=== PATIENT | male | born 1975 | race Caucasian/White ===

== ENCOUNTER 2023-08-08 10:08 | Emergency (ER) | payer OTHER, BC, SELFPAY ==
[2023-08-08 10:11] VITALS: BP 128/84
--- NOTE | 2023-08-08 10:45 | ED.GENMED ---
History of Present Illness
<Nata Hummel PA-C - Last Filed: 08/08/23 13:08>
General
Chief Complaint: Back Pain
Source: patient
Exam Limitations: none
Time Seen by Provider: 08/08/23 10:27
Nursing documentation reviewed up to this point in time: agreed with
Travel History
Have you had any contact with someone who has COVID-19?: No
Do you have any symptoms of coronavirus? Fever > 100 degrees, chills, cough, shortness of breath, sore throat, loss of taste or smell, muscle aches, or headache?: No
History of Present Illness
History of Present Illness:
Patient is a 47 year old male with no significant past medical history presenting for acute onset lower back pain. 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
back. He describes the motion as a quick twisting motion. He denies any falls or trauma. Pain is located in his right lower back with radiation down his right thigh. He tried to take Advil yesterday afternoon without any improvement. He did
apply a heating pad last night. He states the pain is worse today and he has very limited movement. Pain is worse when laying flat.
He denies any fever, chills, lower extremity weakness or numbness. He denies any bowel or bladder incontinence, saddle anesthesia, dysuria. He denies any constipation.
Patient has no history of IV drug use.
Patient has no chronic medical conditions. Takes no medications daily
Past History
<Nata Hummel PA-C - Last Filed: 08/08/23 13:08>
Past History
ED Past Medical History: None
ED Past Surgical History: None
Social History
Tobacco: Non-smoker
Phy Exam
<Nata Hummel PA-C - Last Filed: 08/08/23 13:08>
Physical Exam
Physical Exam:
General: Moderately uncomfortable due to pain; nontoxic appearing
HEENT: Atraumatic, normocephalic; pupils equal round and reactive to light bilaterally, protecting airway
Neck: appears supple, no cervical spine tenderness
CV: RRR, heart sounds normal; No evidence of cyanosis
Resp: No evidence of respiratory distress, lungs clear bilaterally without wheezing, rales, or rhonchi
Abd: Soft, nontender; Non-distended
Extremities: No deformities, no evidence of cyanosis or edema; DP pulses palpable and equal bilaterally; strength 5/5 in upper and lower extremities
Back: No midline spinal tenderness, mild tenderness to palpation in right lower paraspinal region
Neuro: alert and oriented x 3; speech normal; no focal neurologic deficits, sensation fully intact
Psych: Normal affect
Skin: Intact, no rashes
Course
<Nata Hummel PA-C - Last Filed: 08/08/23 13:08>
Orders/Labs/Results
Orders:
Orders
08/08/23 10:53
Acetaminophen [Tylenol] 1,000 mg PO NOW STA
Ketorolac [Toradol] 30 mg IM NOW STA
Lidocaine [Lidocaine 4% Patch] 1 patch TOPICAL ONCE ONE
Oxycodone [Roxicodone] 5 mg PO NOW STA
Vital Signs
Initial and Last Documented VS:
Initial Vital Signs
Temp Pulse Resp BP Pulse Ox
97.7 F 87 20 128/84 97
08/08/23 10:11 08/08/23 10:11 08/08/23 10:11 08/08/23 10:11 08/08/23 10:11
Last Documented Vital Signs
Temp Pulse Resp BP Pulse Ox
97.7 F 87 20 128/84 97
08/08/23 10:11 08/08/23 10:11 08/08/23 10:11 08/08/23 10:11 08/08/23 10:11
<Jonny Aggarwal MD - Last Filed: 08/08/23 11:03>
Orders/Labs/Results
Orders:
Orders
08/08/23 10:53
Acetaminophen [Tylenol] 1,000 mg PO NOW STA
Ketorolac [Toradol] 30 mg IM NOW STA
Lidocaine [Lidocaine 4% Patch] 1 patch TOPICAL ONCE ONE
Oxycodone [Roxicodone] 5 mg PO NOW STA
Vital Signs
Initial and Last Documented VS:
Initial Vital Signs
Temp Pulse Resp BP Pulse Ox
97.7 F 87 20 128/84 97
08/08/23 10:11 08/08/23 10:11 08/08/23 10:11 08/08/23 10:11 08/08/23 10:11
Last Documented Vital Signs
Temp Pulse Resp BP Pulse Ox
97.7 F 87 20 128/84 97
08/08/23 10:11 08/08/23 10:11 08/08/23 10:11 08/08/23 10:11 08/08/23 10:11
<Nata Hummel PA-C - Last Filed: 08/08/23 13:08>
MDM/Problems Addressed
Differential Diagnosis Includes:
Muscular strain, muscular spasm, herniated disc, sciatica, doubt fracture or malignancy
MDM/Problems Addressed:
Patient is a 47-year-old male with no significant past medical history presenting for evaluation of acute onset right lower back pain since yesterday. Patient does report feeling sharp pain when bending over to pick a piece of paper. No red flag
back symptoms. Vital signs are stable, afebrile. Physical exam as document above. Patient appears moderately uncomfortable due to pain. He has no midline spinal tenderness. He does have some tenderness along right lower paraspinal muscles.
Patient unable to lay flat for complete assessment. Do not suspect infectious process. Do not suspect fracture without any known history of trauma. Will treat pain and reassess.
Update 11: 40 p.m: Into reassess patient. He received medications about 15 minutes ago. He does seem to have mildly improved mobility but still reporting significant pain. Will reassess.
Update 12: 20 p.m: Reassessed patient at bedside. He is laying in bed, appears more comfortable. Stable for discharge with return precautions, supportive care, primary care follow-up. Discussed with patient. he is comfortable with this plan.
Chronic conditions affecting care:
N/A
Acute Exacerbation and/or Progression of Chronic Illness:
N/A
<Nata Hummel PA-C - Last Filed: 08/08/23 13:08>
*Pulse Oximetry
Patient hypoxic: no
*Paper Plate Machine Tender Interpretation
Rate: Paper Plate Machine Tender- N/A
*Critical Care Note
Total Time (30-74mins, 75-104mins- exclusive of procedures): Not Applicable
ED Attending Note
<Nata Hummel PA-C - Last Filed: 08/08/23 13:08>
-
Portions of this chart may have been created with voice recognition software.� Occasional wrong word or��sound alike� substitutions may have occurred due to the inherent limitations of voice recognition software.
<Jonny Aggarwal MD - Last Filed: 08/08/23 11:03>
ED Attending Note
Patient seen and examined by attending physician: Yes
ED Attending Note:
HPI: 47-year-old male with history as documented presents to the emergency department for evaluation of back pain. Patient reports he was bending over to pick something up yesterday and felt a twinge in his low back and today having severe pain
right lower back. He says he will occasionally with certain movements get radiating pain into his thigh. Denies any numbness or weakness in the legs. Denies any saddle anesthesia. Denies any incontinence of bowel or bladder. Denies any falls.
No fevers or chills.
ROS: Positive for back pain; negative for weakness or numbness, incontinence, fever
Physical exam:
General: Awake, alert, appears uncomfortable
Head: Normocephalic, atraumatic
Eyes: Conjunctiva normal
Throat: Airway intact, handling secretions
Neck: Trachea midline, supple without meningismus
Lungs: Breathing comfortably no distress
Heart: Regular rate
Abd: Soft, non distended, nontender
Back: Patient has tenderness in the paraspinal region on the right side at the level of L2; no midline tenderness in the lumbar spine; range of motion of the back severely limited by pain
Neuro: Cranial nerves grossly intact, speech fluid; motor function intact bilateral lower extremities and he is ambulatory in the ED
Skin: no rash
Extremities: Warm and well-perfused
Differential diagnosis: Bulging/herniated disc with sciatica, muscle spasm, myofascial strain; vertebral fracture less likely based on mechanism and lack of midline tenderness
Medical decision m[age]-year-old male presents for back pain after bending and twisting to pick something up yesterday. Vital signs normal. Exam as above. No red flag signs or symptoms. Suspect likely muscular pain although possible bulging
disc as well as does occasionally have shooting pains down towards the right thigh. No clear indication for emergent imaging of the back at this point in time. Will plan to treat symptomatically. Will need referral for outpatient follow-up
pending ED treatment.
Chronic conditions affecting care: N/A
Acute exacerbation or progression of chronic illness: N/A
History source: Patient, spouse
Data reviewed: N/A
Medications/testing considered: Considered x-ray of the lumbar spine
Social determinants of health: N/A
Discussion with other providers: N/A
Discharge Plan
Departure
Patient Disposition: Home (Routine Discharge)
Date of Disposition: 08/08/23
Time of Disposition: 12:57
Patient with high blood pressure during this ER visit?: No
Discharge Problem:
Low back pain
Instructions: Low Back Pain (DC)
Prescriptions:
New
oxycodone 5 mg tablet
5 mg PO Q8H PRN (Reason: Pain) Qty: 15 0RF
ibuprofen 400 mg tablet
400 mg PO Q6H PRN (Reason: Pain) Qty: 30 0RF
acetaminophen 500 mg tablet
1,000 mg PO Q6H PRN (Reason: Pain) Qty: 30 0RF
lidocaine 5 % adhesive patch,medicated
1 patch topical DAILY Qty: 30 0RF
Referrals:
Jerry Stein MD [Family Provider] - Call in 1-3 days for appt
Stand Alone Forms: Return to Work
Activity Restrictions/Additional Instructions:
Thank you for visiting the Emergency Department at [facility].
1. Please schedule a follow up appointment as directed. Call first thing tomorrow morning to make an appointment.
2. If indicated, please take your medications as instructed and indicated on discharge paperwork.
3. If any of your symptoms do not improve, or persist, or become more severe within 6-12 hours, please return to the emergency department for further care.
4. Please return to the emergency department if you develop a headache, neck pain/stiffness, fever greater than 100.4F, chest pain, shortness of breath, persistent nausea, vomiting, slurred speech, difficulty walking, numbness/tingling, weakness,
signs of infection or any other symptoms that are worrisome to you.
Please call [phone] if you have any questions.
Interventions
Interventions:
*Risk Screen - Suicide Last Done: 08/08/23 10:11
*General Assessment Last Done: 08/08/23 10:11
*Neglect/Abuse Screening Last Done: 08/08/23 10:11
ED- Fall Risk Assessment Last Done: 08/08/23 13:05
*ED COVID-19 Vaccine History Last Done: 08/08/23 11:16
*Nursing Disposition Last Done: 08/08/23 13:05
ED-Musculoskeletal Assessment Last Done: 08/08/23 11:16
Discharge Date and Time
Print Language: ISRAELI
[2023-08-08] MEDS: TORADOL 30 MG IM (11:08)
[2023-08-08] MEDS: ROXICODONE 5 MG PO (11:08)
[2023-08-08] MEDS: LIDOCAINE 4% PATCH 1 PATCH TOPICAL (11:09)
[2023-08-08] MEDS: TYLENOL 1000 MG PO (11:09)
== END 2023-08-08 13:07 | disposition home or self-care (01) ==
LOC: EMR 10:08
PROVIDERS: EMERGENCY PHYSICIAN Emergency Medicine; FAMILY PHYSICIAN Family Medicine
DX: M54.50 Low back pain, unspecified (principal); X50.1XXA Overexertion from prolonged static or awkward postures, initial encounter
CPT/HCPCS: 99284; 96372

== ENCOUNTER → 2024-09-11 14:51 | Outpatient (REF) | payer BC, SELFPAY | LOC: DHSLP 14:51 | PROVIDERS: ATTENDING PHYSICIAN Family Medicine | DX: G47.33 Obstructive sleep apnea (adult) (pediatric) (principal); R09.02 Hypoxemia | CPT/HCPCS: 95806 ==